=== PATIENT | male | born 1950 | race Caucasian/White ===

== ENCOUNTER 2019-10-04 16:14 | Outpatient (CLI) | payer MEDICARE, OTHER | END 2019-10-04 16:15 | disposition home or self-care (01) | LOC: CTENTCT 16:14 | PROVIDERS: ATTEND Student in an Organized Health Care Education/Training Program | DX: J32.9 Chronic sinusitis, unspecified (principal) | CPT/HCPCS: 70486 ==

== ENCOUNTER 2021-01-31 09:11 | Outpatient (CLI) | payer MEDICARE, OTHER | END 2021-01-31 09:12 | disposition home or self-care (01) | LOC: BICRAD 09:11 | PROVIDERS: ATTEND Internal Medicine Pulmonary Disease | DX: R06.09 Other forms of dyspnea (principal); I51.7 Cardiomegaly; R91.8 Other nonspecific abnormal finding of lung field | CPT/HCPCS: 71046 ==

== ENCOUNTER 2021-02-28 09:33 | Outpatient (CLI) | payer MEDICARE, OTHER | END 2021-02-28 09:34 | disposition home or self-care (01) | LOC: CTENTCT 09:33 | PROVIDERS: ATTEND Specialist | DX: J32.8 Other chronic sinusitis (principal) | CPT/HCPCS: 70486 ==

== ENCOUNTER 2024-06-02 11:15 | Outpatient (CLI) | payer MEDICARE, OTHER | END 2024-06-02 11:16 | disposition home or self-care (01) | LOC: PET 11:15 | PROVIDERS: ATTEND Internal Medicine | DX: R91.1 Solitary pulmonary nodule (principal) | CPT/HCPCS: 78815; A9552 ==

== ENCOUNTER 2024-08-02 10:16 | Emergency (ER) | payer MEDICARE, OTHER ==
[2024-08-02 10:56] LABS: %Basophils 0.6 % (0.0-1.0); %Eosinophils 0.4 % (0.0-10.0); %Lymphocytes 6.6 % (21.0-51.0); %Monocytes 4.8 % (0.0-10.0); %Neutrophils 86.2 % (42.0-75.0); Hematocrit 45.7 % (42.0-52.0); Hemoglobin 15.7 g/dL (14.0-18.0); Mean Corpuscular HGB CONC 34.4 g/dL (32.0-36.0); Mean Corpuscular Hemoglobin 31.8 pg (27.0-31.0); Mean Corpuscular Volume 92.5 fL (78.0-98.0); Mean Platelet Volume 9.5 fL (7.4-10.4); Platelet Count 365 10x3/uL (130-400); RBC Distribution Width 13.2 % (11.5-14.5); Red Blood Cell (RBC) Count 4.94 mill/uL (4.70-6.10)
[2024-08-02] MEDS ORDERED: methylPREDNISolone Sod Succ/PF 125 MG/2 ML VIAL ONE (11:08)
[2024-08-02] MEDS ORDERED: Ipratropium Bromide 2.5 ml Neb ONE (11:08)
[2024-08-02] MEDS ORDERED: Furosemide 40 MG (4 mL) VIAL ONE (11:08)
[2024-08-02] MEDS ORDERED: Albuterol 2.5 MG (0.5 mL) NEB ONE ×2 (11:08→12:58)
[2024-08-02 11:33] LABS: ALT (SGPT) 43 U/L (8-55); AST (SGOT) 21 U/L (5-34); Albumin 3.7 g/dL (3.4-4.8); Alkaline Phosphatase 136 U/L (40-110); Anion Gap 15 mmol/L (10-20); BUN (Urea Nitrogen) 11 mg/dL (8.4-25.7); Bilirubin, Total 0.7 mg/dL (0.2-1.2); Calc. Creatinine Clearance 0 mL/min (70-130); Calcium 9.4 mg/dL (7.8-10.44); Carbon Dioxide 28 mmol/L (23-31); Chloride 98 mmol/L (98-107); Estimated GFR 89; Globulin 3.4 g/dL (2.4-3.5); Glucose 132 mg/dL (83-110); Potassium 3.6 mmol/L (3.5-5.1); Protein, Total 7.1 g/dL (5.8-8.1); Sodium 137 mmol/L (136-145)
[2024-08-02 11:52] LABS: Troponin I Less than 0.010 ng/mL (< 0.028)
[2024-08-02] MEDS ORDERED: Ipratropium/Albuterol 3 ML NEB ONE (12:58)
[2024-08-02] MEDS ORDERED: LevoFLOXacin 250 MG TAB ONE (14:44)
[2024-08-02] MEDS ORDERED: LevoFLOXacin 500 MG TAB ONE (14:44)
== END 2024-08-02 14:52 | disposition home or self-care (01) ==
LOC: ERS 10:16
DX: J44.1 Chronic obstructive pulmonary disease with (acute) exacerbation (principal); J44.0 Chronic obstructive pulmonary disease with (acute) lower respiratory infection; J18.9 Pneumonia, unspecified organism
CPT/HCPCS: 71045; 80053; 83880; 84484; 85025; 93005; 96374; 96375; 99284; J1940; J2919; J7644; J7611; J7620